=== PATIENT | female | born 1990 | race Asian ===

== ENCOUNTER 2018-08-16 21:49 | Emergency (ER) | payer SELFPAY ==
[~2018-08-16] VITALS: Ht 160 cm; Wt 55.3 kg
[2018-08-16] MEDS ORDERED: OMEPRAZOLE40 M1 ORAL (21:57)
[2018-08-16 22:30] VITALS: BP 122/76
[2018-08-16] MEDS ORDERED: Lidocaine 2% Visc 15ml soln PO ONE (22:30)
[2018-08-16] MEDS ORDERED: Mylanta II UD 30ml ORAL ONE (22:30)
[2018-08-16 23:07] LABS: HEMATOCRIT 41.8 % (37.0-47.0); HEMOGLOBIN 13.7 G/DL (12.0-16.0); MEAN CORPUSCULAR VOLUME 82 FL (80-99); PLATELET COUNT 374 K/UL (150-450); RED BLOOD COUNT 5.07 M/UL (4.20-5.40); RED CELL DISTRIBUTION WIDTH 13.2 % (11.6-14.8); WHITE BLOOD COUNT 6.2 K/UL (4.8-10.8)
[2018-08-16 23:15] LABS: ANION GAP 15 mmol/L (5-15); BLOOD UREA NITROGEN 7 mg/dL (7-18); CALCIUM 9.5 MG/DL (8.5-10.1); CARBON DIOXIDE 23 MMOL/L (21-32); CHLORIDE 101 MMOL/L (98-107); CREATININE 0.9 MG/DL (0.55-1.30); POTASSIUM 3.1 MMOL/L (3.5-5.1); SODIUM 139 MMOL/L (136-145)
[2018-08-16 23:17] LABS: ALANINE AMINOTRANSFERASE 8 U/L (12-78); ALBUMIN 4.4 G/DL (3.4-5.0); ALBUMIN/GLOBULIN RATIO 0.9 (1.0-2.7); ALKALINE PHOSPHATASE 75 U/L (46-116); ASPARTATE AMINO TRANSFERASE 18 U/L (15-37); BILIRUBIN,TOTAL 0.6 MG/DL (0.2-1.0)
--- NOTE | 2018-08-16 23:44 | Emergency Room Report ---
History of Present Illness General Chief Complaint: Abdominal Pain Present Illness HPI 28 AF c/o epigastric burning three days severe, similar to past episodes gastritis. Pt. has GERD and has been taking Omeprazole. In the past she has had US with no gallstones and also EGD with gastritis. No fever, no trauma, +nausea/ emesis. No past surgical history, no travel, no change in bowel. No etoh no nsaids. Allergies: Uncoded Allergies: CRUSTACIANS, SHELLFISH (Allergy, Unknown, 08/16/18) Patient History Last Menstrual Period: currently on Now: No Nursing Documentation-PMH Hx Gastrointestinal Problems: Yes - gastritis Review of Systems Constitutional: Reports: no symptoms Eye: Reports: no symptoms ENT: Reports: no symptoms Respiratory: Reports: no symptoms Cardiovascular: Reports: no symptoms Gastrointestinal: Reports: see HPI, abdominal pain, nausea, vomiting Genitourinary: Reports: no symptoms Musculoskeletal: Reports: no symptoms Skin: Reports: no symptoms Psychiatric: Reports: no symptoms Neurological: Reports: no symptoms Endocrine: Reports: no symptoms Hematologic/Lymphatic: Reports: no symptoms Allergic: Reports: no symptoms All Other Systems: negative except mentioned in HPI Physical Exam Vital Signs Date Time Temp Pulse Resp B/P (MAP) Pulse Ox O2 Delivery O2 Flow Rate FiO2 08/16/18 21:50 97.2 81 18 121/82 97 Room Air Sp02 EP Interpretation: reviewed, normal General Appearance: normal inspection, well appearing, no apparent distress, alert, GCS 15, non-toxic Head: normocephalic, atraumatic Eyes: bilateral eye normal inspection, bilateral eye PERRL, bilateral eye EOMI ENT: normal ENT inspection, hearing grossly normal, normal pharynx, no angioedema, normal voice, moist mucus membranes Neck: normal inspection, full range of motion, supple, no meningismus, no bony tend Respiratory: normal inspection, lungs clear, normal breath sounds, no rhonchi, no respiratory distress, no retraction, no accessory muscle use, no wheezing Cardiovascular #1: normal inspection, regular rate, rhythm, no edema Gastrointestinal: normal inspection, normal bowel sounds, soft, no mass, non- distended, other - +epigastric tenderness, negative Saldaña's Musculoskeletal: gait/station normal, normal range of motion Neurologic: normal inspection, alert, oriented x3, responsive, motor strength/ tone normal Psychiatric: normal inspection, judgement/insight normal, memory normal Suicide Risk Assessment: Suicidal Ideation: No Had intent to initiate attempt: No Pt's plan for suicide attempt: No Has means to complete attempt: No Skin: normal inspection, normal color, no rash, warm/dry Medical Decision Making Diagnostic Impression: Primary Impression: Gastritis Last Vital Signs Date Time Temp Pulse Resp B/P (MAP) Pulse Ox O2 Delivery O2 Flow Rate FiO2 08/16/18 22:30 97.2 61 18 122/76 97 Room Air Status: improved Disposition: HOME, SELF-CARE Condition: Stable Referrals: NOT CHOSEN IPA/,REFERRING (PCP) Patient Instructions: Gastritis, Adult Dino Roberson M.D. Aug 16, 2018 23:44
[2018-08-16] MEDS ORDERED: Morphine Sulfate 2mg/ml Inj IVP ONE (23:45)
[2018-08-17 00:18] LABS: APPEARANCE,URINE SLIGHTLY CLOUDY; BILIRUBIN, URINE NEGATIVE (NEGATIVE); COLOR,URINE PALE YELLOW; GLUCOSE, URINE (UA) NEGATIVE (NEGATIVE); KETONES,URINE 3+ (NEGATIVE); LEUKOCYTE ESTERASE ,URINE 2+ (NEGATIVE); NITRITE,URINE NEGATIVE (NEGATIVE); PH,URINE 6 (4.5-8.0); PROTEIN,URINE NEGATIVE (NEGATIVE); UROBILINOGEN,URINE NORMAL MG/DL (0.0-1.0)
[2018-08-17 00:20] VITALS: BP 117/73
[2018-08-17] MEDS ORDERED: ZOFRAN4 MG ORAL (01:00)
[2018-08-17 01:10] VITALS: BP 117/73
== END 2018-08-17 01:10 | disposition home or self-care (01) ==
LOC: EMR 22:23
DX: K29.70 Gastritis, unspecified, without bleeding (principal); K21.9 Gastro-esophageal reflux disease without esophagitis
CPT/HCPCS: 36415; 80053; 80307; 81001; 81025; 83690; 85007; 85025; 87086; 96361; 96374; 96375; 99284; J2270; J2405; S0028

== ENCOUNTER 2019-02-08 19:03 | Emergency (ER) | payer MEDICAID, OTHER ==
[~2019-02-08] VITALS: Ht 160 cm; Wt 54.4 kg
[~2019-02-08 19:03] MED LIST: OMEPRAZOLE40 M1 ORAL; ZOFRAN4 MG ORAL
[2019-02-08] MEDS ORDERED: ZANTAC150 MG ORAL (19:26)
--- NOTE | 2019-02-08 19:30 | NUR ---
ED Nurse Note: Patient walk in c/o upper left abdominal pain radiating to upper back for 2 days. Patient reports nausea. AO4. NAD. VSS
--- NOTE | 2019-02-08 19:35 | NUR ---
ED Nurse Note: IV ACCESS ESTABLISHED. BLOOD AND URINE COLLECTED; SENT DOWN TO LAB.
[2019-02-08 19:36] VITALS: BP 134/88
[2019-02-08 19:54] LABS: BASOPHILS % (AUTO) 1.6 % (0.0-2.0); HEMOGLOBIN 12.1 G/DL (12.0-16.0); LYMPHOCYTES % (AUTO) 44.5 % (20.0-45.0); MEAN CORPUSCULAR VOLUME 83 FL (80-99); MONOCYTES % (AUTO) 6.6 % (1.0-10.0); NEUTROPHILS % (AUTO) 45.3 % (45.0-75.0); PLATELET COUNT 247 K/UL (150-450); RED BLOOD COUNT 4.59 M/UL (4.20-5.40); RED CELL DISTRIBUTION WIDTH 13.3 % (11.6-14.8); WHITE BLOOD COUNT 4.6 K/UL (4.8-10.8)
[2019-02-08 20:03] LABS: ANION GAP 8 mmol/L (5-15); BLOOD UREA NITROGEN 8 mg/dL (7-18); CALCIUM 8.6 MG/DL (8.5-10.1); CARBON DIOXIDE 28 MMOL/L (21-32); CHLORIDE 104 MMOL/L (98-107); CREATININE 0.8 MG/DL (0.55-1.30); POTASSIUM 3.3 MMOL/L (3.5-5.1); SODIUM 139 MMOL/L (136-145)
[2019-02-08 20:07] LABS: ALANINE AMINOTRANSFERASE 9 U/L (12-78); ALBUMIN 3.9 G/DL (3.4-5.0); ALKALINE PHOSPHATASE 58 U/L (46-116); ASPARTATE AMINO TRANSFERASE 15 U/L (15-37); BILIRUBIN,TOTAL 0.6 MG/DL (0.2-1.0)
[2019-02-08 20:17] LABS: APPEARANCE,URINE CLEAR; BILIRUBIN, URINE NEGATIVE (NEGATIVE); COLOR,URINE PALE YELLOW; GLUCOSE, URINE (UA) NEGATIVE (NEGATIVE); KETONES,URINE NEGATIVE (NEGATIVE); LEUKOCYTE ESTERASE ,URINE 2+ (NEGATIVE); NITRITE,URINE NEGATIVE (NEGATIVE); PH,URINE 8 (4.5-8.0); PROTEIN,URINE NEGATIVE (NEGATIVE); UROBILINOGEN,URINE NORMAL MG/DL (0.0-1.0)
--- NOTE | 2019-02-08 20:23 | Emergency Room Report ---
History of Present Illness General Chief Complaint: Abdominal Pain Source: Patient Present Illness HPI 29-year-old female with history of gastritis currently under treatment of her PCP here complaining of worsening left upper quadrant pain that started 2 nights ago, 30 minutes after consumption of her meal. She reports the pain is now radiating to her left lower back and of her left shoulder. Minimal nausea acid reflux however has not vomited. Denies hemoptysis, blood in stool, diarrhea. Patient is waiting for pending abdominal ultrasound requested by primary care provider however has never been sent to gastroenterology. Chest pain, S OB, palpitation, urinary symptoms. P was 2 weeks ago and regular patient is not currently sexually active. Patient reports that she usually with spicy, acidic food and has not had anything greasy in the past few days. Alcohol consumption and drug use. Allergies: Uncoded Allergies: CRUSTACIANS, SHELLFISH (Allergy, Unknown, 08/16/18) Patient History Past Medical History: see triage record Past Surgical History: unable to obtain Pertinent Family History: none Last Menstrual Period: 01/25/2019 Now: No Immunizations: UTD Reviewed Nursing Documentation: PMH: Agreed; PSxH: Agreed Nursing Documentation-PMH Past Medical History: No History, Except For Hx Gastrointestinal Problems: Yes - gastritis Review of Systems All Other Systems: negative except mentioned in HPI Physical Exam Vital Signs Date Time Temp Pulse Resp B/P (MAP) Pulse Ox O2 Delivery O2 Flow Rate FiO2 02/08/19 19:20 98.4 73 16 134/88 97 Room Air Sp02 EP Interpretation: reviewed, normal General Appearance: normal inspection, well appearing, no apparent distress, alert, GCS 15 Head: normocephalic, atraumatic Eyes: bilateral eye normal inspection, bilateral eye PERRL ENT: normal ENT inspection, hearing grossly normal, normal pharynx, no angioedema Neck: normal inspection, full range of motion, supple Respiratory: normal inspection, chest non-tender, lungs clear, no rhonchi, no wheezing Cardiovascular #1: normal inspection, regular rate, rhythm, no edema, no gallop , no murmur, normal capillary refill Gastrointestinal: normal bowel sounds, non tender, no mass, no peritonitis, no bruit, non-distended, guarding - LUQ Rectal: deferred Genitourinary: no CVA tenderness Musculoskeletal: normal inspection, back normal Neurologic: normal inspection, alert, oriented x3 Psychiatric: normal inspection, judgement/insight normal Skin: normal inspection, normal color, no rash, warm/dry Lymphatic: normal inspection, no adenopathy Medical Decision Making PA Attestation All my diagnosis and treatment plans were reviewed ad discussed with my supervising physician Dr. Eubanks Diagnostic Impression: Primary Impression: Gastric ulcer Additional Impression: UTI (urinary tract infection) ER Course 29-year-old female with history of gastritis currently under treatment of her PCP here complaining of worsening left upper quadrant pain that started 2 nights ago, 30 minutes after consumption of her meal. She reports the pain is now radiating to her left lower back and of her left shoulder. Minimal nausea acid reflux however has not vomited. Denies hemoptysis, blood in stool, diarrhea. Patient is waiting for pending abdominal ultrasound requested by primary care provider however has never been sent to gastroenterology. Chest pain, S OB, palpitation, urinary symptoms. P was 2 weeks ago and regular patient is not currently sexually active. Patient reports that she usually with spicy, acidic food and has not had anything greasy in the past few days. Alcohol consumption and drug use. Ddx considered but are not limited to: gastric ulcer, gastritis, aortic dissection, UTI, pylonephritis, hypokalemia, peptic ulcer Vital signs: are WNL, pt. is afebrile H&PE are most consistent with: ORDERS: abdominal CT, abdominal pain set, EKG, 10mg potassium chloride PO , macrobid , omeprazole ED INTERVENTIONS: zofran and famitidine DISCHARGE: At this time pt. is stable for d/c to home. Will provide printed patient care instructions, and any necessary prescriptions. Care plan and follow up instructions have been discussed with the patient prior to discharge. potassium: 3.3, urine leuk: positive with WBC in UA EKG Diagnostic Results Rate: normal Rhythm: NSR ST Segments: no acute changes CT/MRI/US Diagnostic Results CT/MRI/US Diagnostic Results : Imaging Test Ordered: chest/abd CT no contrast Impression CT ABDOMEN & PELVIS Without Contrast: Only clinical information provided was "pain". Evaluation and significantly diminished by the absence of IV contrast enhancement. The unenhanced solid abdominal organs demonstrate no acute findings. Gallbladder and biliary tree are unremarkable. Lower GI tract demonstrates no obstruction, pneumatosis or focal wall thickening. The appendix is normal. Negative for pneumoperitoneum. Probable functional left ovarian cyst. Small amount of free fluid in the dependent pelvis likely physiologic or secondary to ovarian cyst rupture. Mittelschmerz is a consideration for patient's pain if it is lower abdominal/pelvic. CT CHEST Without Contrast: The only clinical history provided was "pain" Thoracic aorta is normal in caliber. Heart size is normal. Negative for parenchymal consolidation, pneumothorax or pleural fluid collections. No acute osseous findings. Last Vital Signs Date Time Temp Pulse Resp B/P (MAP) Pulse Ox O2 Delivery O2 Flow Rate FiO2 02/08/19 19:36 73 16 Room Air 02/08/19 19:36 98.4 134/88 97 Disposition: HOME, SELF-CARE Condition: Stable Patient Instructions: Gastritis, Adult, [id number], Urinary Tract Infection, [id number] Additional Instructions: Low with a primary care provider for referral to measurer for endoscopy and correct diagnosis of gastric ulcer avoid spicy, acidic and greasy food if bloody diarrhea or dark black stools or blood in vomit return to the emergency room immediately patient denies lower abdominal pain and no irregular vaginal bleeding reported. Follow-up with the primary care provider for referral to gastroenterology and possibly to veterinary manager if any irregular bleeding. Ezequiel Frost Feb 08, 2019 20:23
[2019-02-08] MEDS ORDERED: NITROFURANTOIN100 M2 ORAL (21:25)
[2019-02-08] MEDS ORDERED: OMEPRAZOLE20 M2 ORAL (21:25)
[2019-02-08] MEDS ORDERED: ZOFRAN4 M1 ORAL (21:28)
[2019-02-08 21:30] VITALS: BP 134/88
--- NOTE | 2019-02-08 21:30 | NUR ---
ER DISCHARGE NOTE: Patient is cleared to be discharged per ERMD, pt is aox4, on room air, with stable vital signs. accompanied by family member. pt was given dc and prescription instructions, pt was able to verbalize understanding, pt id band and iv site removed without complications. pt is able to ambulate with steady gait. pt took all belongings.
--- NOTE | 2019-02-09 10:47 | Diagnostic Imaging Report ---
CLINICAL INDICATION:Left upper abdominal pain radiating to upper back for 2 days, TECHNIQUE: No oral contrast, per emergency room physician request. No IV contrast utilized, per emergency room physician request. Spiral acquisitions obtained through the chest, abdomen, and pelvis. Multiplanar reconstructions were generated. Total dose length product 842.09 mGycm. CTDIvol(s) 13.12 mGy. Radiation dose was minimized using automated exposure control COMPARISON: none FINDINGS Chest: Lungs are clear. No infiltrates, effusions, or congestion. Occasional focal areas of pleural thickening are seen in the left lower lobe pleural surface. Heart size is normal. No pericardial effusion. No mediastinal or hilar mass or adenopathy. Included thyroid is unremarkable. No axillary or chest wall mass or adenopathy. The bones are unremarkable. Abdomen pelvis: Normal appendix. No evidence of diverticulosis or diverticulitis. No small bowel distention. No free or loculated intraperitoneal gas is evident. There is trace free fluid in the pelvic cul-de-sac The distal esophagus, stomach, duodenum are unremarkable. Lack of IV contrast limits assessment of the solid organs. The liver, gallbladder, bile ducts, pancreas, spleen, adrenals, kidneys are unremarkable. No pelvic mass or adenopathy. Uterus and ovaries are unremarkable. Bones are unremarkable. IMPRESSION: Essentially unremarkable exam. Trace free pelvic fluid, most likely physiologic This agrees with the preliminary interpretation provided overnight by [facility] teleradiology service. The CT scanner at [facility] is accredited by the [employer] and the scans are performed using protocols designed to limit radiation exposure to as low as reasonably achievable to attain images of sufficient resolution adequate for diagnostic evaluation.
== END 2019-02-08 21:30 | disposition home or self-care (01) ==
LOC: EMR 19:36
DX: K25.9 Gastric ulcer, unspecified as acute or chronic, without hemorrhage or perforation (principal); N39.0 Urinary tract infection, site not specified; Z91.013 Allergy to seafood; M54.5 Low back pain; M25.512 Pain in left shoulder; R11.0 Nausea
CPT/HCPCS: 36415; 71250; 74176; 80053; 81003; 81025; 83690; 85025; 93005; 96374; 96375; 99284; J2405; S0028

== ENCOUNTER 2019-05-28 10:42 | Emergency (ER) | payer OTHER ==
[~2019-05-28] VITALS: Ht 160 cm; Wt 56.2 kg
[~2019-05-28 10:42] MED LIST changes: +NITROFURANTOIN100 M2 ORAL; +OMEPRAZOLE20 M2 ORAL; +ZANTAC150 MG ORAL; +ZOFRAN4 M1 ORAL
--- NOTE | 2019-05-28 11:00 | NUR ---
ED Nurse Note: pt walked in to ER from home due to Lt upper abdomen pain 04/22 which started 2 days ago. pt aao x4 and ambulatory. skin clean and intact. calm and cooeprative. sister at bedside. pt is in gown. no acute distress noted at this moment. no vomiting but pt reported mild nausea.
[2019-05-28 11:08] VITALS: BP 117/56
--- NOTE | 2019-05-28 11:08 | Emergency Room Report ---
History of Present Illness General Chief Complaint: Abdominal Pain Source: Patient Present Illness HPI Disclaimer: Please note that this report is being documented using ePrepON technology. This can lead to erroneous entry secondary to incorrect interpretation by the dictating instrument. HPI: 29-year-old female with history of gastritis taking omeprazole presents for evaluation of abdominal pain. Symptoms present for approximately 2 days in the epigastrium. Notes a gnawing pain that began 2 days ago. Yesterday was getting a little bit better however late in the afternoon she began to feel extreme pain that was radiating up her back causing some difficulty breathing. Patient was scoped approximately 1 year ago but found no ulcers. She is currently being worked up by gastroenterology and plan for another EGD once she finished a course of omeprazole which she has been compliant with. Denies headaches, loss of consciousness but is lightheaded. She denies chest pain, palpitations. Notes mild shortness of breath due to pain. Denies diarrhea, melena, dysuria, hematuria, vaginal bleeding or vaginal discharge. LMP approximately 1 month ago. Denies drug or alcohol use. Denies fevers or chills. PMH: gastritis PSH: None Allergies: Fish Social Hx: Denies drug, alcohol or tobacco use Allergies: Uncoded Allergies: CRUSTACIANS, SHELLFISH (Allergy, Unknown, 08/16/18) Patient History Last Menstrual Period: 05/06/19 Now: No Nursing Documentation-PMH Past Medical History: No History, Except For Hx Gastrointestinal Problems: Yes - gastritis Review of Systems All Other Systems: negative except mentioned in HPI Physical Exam Vital Signs Date Time Temp Pulse Resp B/P (MAP) Pulse Ox O2 Delivery O2 Flow Rate FiO2 05/28/19 10:47 97.5 59 20 117/56 (76) 97 Room Air General: Awake and alert, no acute distress HEENT: NC/AT. EOMI. Neck: Supple, trachea midline Chest Wall: No tenderness, no deformity Cardiovascular: RRR. S1 and S2 normal. No murmur appreciated Resp: Normal work of breathing. No cough, wheezing or crackles appreciated Abdomen: Abdomen is soft, nondistended. Significant tenderness in the epigastrium, left upper quadrant. Minimal right upper quadrant tenderness. No Saldaña's. No rebound, no masses. Skin: Intact. No abrasions, laceration or rash over the exposed skin MSK: Normal tone and bulk. Moving all extremities. No obvious deformity. Neuro: Awake and alert. Mentating appropriately. Medical Decision Making ER Course 29-year-old female with a history of gastritis presents for evaluation of worsening abdominal pain over the past 2 days. Her vital signs are stable though the patient does appear uncomfortable. Differential includes but is not limited to gastritis, gastroenteritis, peptic ulcer disease, duodenal ulcer, abscess, pancreatitis, cholecystitis, perforation, UTI, , ectopic . We will start IV fluids, antiemetics, famotidine and send the patient for CT scan of the abdomen to rule out perforated ulcer or possible abscess. Laboratory Tests Test 05/28/19 11:05 White Blood Count 3.9 K/UL (4.8-10.8) L Red Blood Count 4.76 M/UL (4.20-5.40) Hemoglobin 12.5 G/DL (12.0-16.0) Hematocrit 40.3 % (37.0-47.0) Mean Corpuscular Volume 85 FL (80-99) Mean Corpuscular Hemoglobin 26.3 PG (27.0-31.0) L Mean Corpuscular Hemoglobin Concent 31.0 G/DL (32.0-36.0) L Red Cell Distribution Width 13.4 % (11.6-14.8) Platelet Count 325 K/UL (150-450) Mean Platelet Volume 4.7 FL (6.5-10.1) L Neutrophils (%) (Auto) 61.5 % (45.0-75.0) Lymphocytes (%) (Auto) 30.0 % (20.0-45.0) Monocytes (%) (Auto) 4.9 % (1.0-10.0) Eosinophils (%) (Auto) 1.7 % (0.0-3.0) Basophils (%) (Auto) 2.0 % (0.0-2.0) Urine Color Pale yellow Urine Appearance Slightly cloudy Urine pH 8 (4.5-8.0) Urine Specific [place] 1.015 (1.005-1.035) Urine Protein Negative (NEGATIVE) Urine Glucose (UA) Negative (NEGATIVE) Urine Ketones 2+ (NEGATIVE) H Urine Blood 3+ (NEGATIVE) H Urine Nitrite Negative (NEGATIVE) Urine Bilirubin Negative (NEGATIVE) Urine Urobilinogen Normal MG/DL (0.0-1.0) Urine Leukocyte Esterase 2+ (NEGATIVE) H Urine RBC 2-4 /HPF (0 - 2) H Urine WBC 2-4 /HPF (0 - 2) Urine Squamous Epithelial Cells Many /LPF (NONE/OCC) H Urine Bacteria Few /HPF (NONE) Urine HCG, Qualitative Negative (NEGATIVE) Sodium Level 141 MMOL/L (136-145) Potassium Level 3.7 MMOL/L (3.5-5.1) Chloride Level 107 MMOL/L (98-107) Carbon Dioxide Level 26 MMOL/L (21-32) Anion Gap 8 mmol/L (5-15) Blood Urea Nitrogen 9 mg/dL (7-18) Creatinine 0.8 MG/DL (0.55-1.30) Estimat Glomerular Filtration Rate > 60 mL/min (>60) Glucose Level 99 MG/DL (74-106) Calcium Level 8.6 MG/DL (8.5-10.1) Total Bilirubin 0.5 MG/DL (0.2-1.0) Aspartate Amino Transf (AST/SGOT) 15 U/L (15-37) Alanine Aminotransferase (ALT/SGPT) 6 U/L (12-78) L Alkaline Phosphatase 51 U/L (46-116) Total Protein 7.9 G/DL (6.4-8.2) Albumin 4.0 G/DL (3.4-5.0) Globulin 3.9 g/dL Albumin/Globulin Ratio 1.0 (1.0-2.7) Lipase 176 U/L (73-393) Reevaluation Time: 13:27 Last Vital Signs Date Time Temp Pulse Resp B/P (MAP) Pulse Ox O2 Delivery O2 Flow Rate FiO2 05/28/19 10:47 97.5 59 20 117/56 (76) 97 Room Air Status: improved Reevaluation Impression CT scan of the abdomen does not show any evidence of perforated ulcer, pink otitis, appendicitis or any other acute abnormality. There is a 14 mm low- attenuation right lobe liver lesion that will need follow-up as an outpatient. I discussed the findings as well as the focal fatty infiltration of the left hepatic lobe with the patient. She states that she is going to see her map mounter next week and bring this report which I printed for her. She can discuss further follow-up with ultrasound or other modalities as needed. She would like to return home now and states she is feeling much better. We will start the patient on famotidine daily and she will continue her omeprazole. She is treated with Protonix here in the emergency department. She can follow-up with her GI specialist and return to the emergency department any new or worsening symptoms. She understands and agrees with this treatment plan, the need for follow-up and reasons to return to the emergency department. Disposition: HOME, SELF-CARE Condition: Improved Scripts Famotidine (FAMOTIDINE) 20 Mg Tablet 20 MG ORAL TWICE A DAY for gerd, #60 TAB 0 Refills Prov: Luis Collado MD 05/28/19 Luis Collado MD May 28, 2019 11:08
[2019-05-28 11:26] LABS: EOSINOPHILS % (AUTO) 1.7 % (0.0-3.0); HEMATOCRIT 40.3 % (37.0-47.0); HEMOGLOBIN 12.5 G/DL (12.0-16.0); MEAN CORPUSCULAR VOLUME 85 FL (80-99); MONOCYTES % (AUTO) 4.9 % (1.0-10.0); NEUTROPHILS % (AUTO) 61.5 % (45.0-75.0); PLATELET COUNT 325 K/UL (150-450); RED BLOOD COUNT 4.76 M/UL (4.20-5.40); RED CELL DISTRIBUTION WIDTH 13.4 % (11.6-14.8); WHITE BLOOD COUNT 3.9 K/UL (4.8-10.8)
[2019-05-28 11:33] LABS: ANION GAP 8 mmol/L (5-15); BLOOD UREA NITROGEN 9 mg/dL (7-18); CALCIUM 8.6 MG/DL (8.5-10.1); CARBON DIOXIDE 26 MMOL/L (21-32); CHLORIDE 107 MMOL/L (98-107); CREATININE 0.8 MG/DL (0.55-1.30); POTASSIUM 3.7 MMOL/L (3.5-5.1); SODIUM 141 MMOL/L (136-145)
[2019-05-28 11:38] LABS: ALANINE AMINOTRANSFERASE 6 U/L (12-78); ALKALINE PHOSPHATASE 51 U/L (46-116); ASPARTATE AMINO TRANSFERASE 15 U/L (15-37); BILIRUBIN,TOTAL 0.5 MG/DL (0.2-1.0)
[2019-05-28 11:48] LABS: APPEARANCE,URINE SLIGHTLY CLOUDY; BILIRUBIN, URINE NEGATIVE (NEGATIVE); COLOR,URINE PALE YELLOW; GLUCOSE, URINE (UA) NEGATIVE (NEGATIVE); KETONES,URINE 2+ (NEGATIVE); LEUKOCYTE ESTERASE ,URINE 2+ (NEGATIVE); NITRITE,URINE NEGATIVE (NEGATIVE); PH,URINE 8 (4.5-8.0); PROTEIN,URINE NEGATIVE (NEGATIVE); UROBILINOGEN,URINE NORMAL MG/DL (0.0-1.0)
[2019-05-28] MEDS ORDERED: Isovue-300 100ml vial INJ PRN (12:30)
--- NOTE | 2019-05-28 12:42 | NUR ---
ED Nurse Note: pt ambulated to bathroom with steady gait.
[2019-05-28 13:08] VITALS: BP 126/78
--- NOTE | 2019-05-28 13:19 | NUR ---
ED Nurse Note: pt went down for CT in stable condition.
--- NOTE | 2019-05-28 13:40 | NUR ---
ED Nurse Note: pt came back from CT scan in stable condition.
--- NOTE | 2019-05-28 14:14 | Diagnostic Imaging Report ---
Clinical Indication: Abdominal pain Technique: No oral contrast utilized, per emergency room physician request IV administration nonionic contrast. Venous phase spiral acquisition obtained through the abdomen and pelvis. Multiplanar reconstructions were generated. Total dose length product 571.53 mGycm. CTDIvol(s) 11.86 mGy. Dose reduction achieved using automated exposure control Comparison: 02/08/2019 noncontrast study Findings: Lack of enteric contrast limits assessment of the GI tract. Normal appendix. No evidence of colonic diverticulosis or diverticulitis. Small amount of free fluid is seen within the pelvis. No small bowel distention. No free intraperitoneal gas demonstrated. The distal esophagus, stomach, duodenum are unremarkable. Within segment 5 of the liver, there is a subtle 14 mm low-attenuation lesion which is not visible on the prior noncontrast study. On the coronal images, there is suggestion of some border nodularity. There is some focal low attenuation likely representing focal fatty change in the usual location adjacent to the falciform ligament. There is a tiny subcentimeter low-attenuation lesion in segment 8 which is too small to characterize. The gallbladder, bile ducts, pancreas, spleen, adrenals, kidneys are all unremarkable. No retroperitoneal or mesenteric mass or adenopathy. No pelvic mass or adenopathy. Uterus and ovaries are unremarkable. The included lung bases are clear. The bones are unremarkable. Impression: Limited assessment of the GI tract, due to lack of enteric contrast administration No gross acute abnormality 14 mm low-attenuation right lobe liver lesion. Appearance nonspecific although some some border nodularity raises possibility that this is a hemangioma. Other differential considerations include adenoma, primary or secondary neoplasm, infectious/inflammatory lesion. Consider further with hemangioma protocol CT or MRI Focal fatty infiltration within the left hepatic lobe. Subcentimeter low-attenuation lesion within the right hepatic lobe, too small to characterize, does not need further follow-up Trace free pelvic fluid, presumably physiologic The CT scanner at [facility] is accredited by the [employer] and the scans are performed using protocols designed to limit radiation exposure to as low as reasonably achievable to attain images of sufficient resolution adequate for diagnostic evaluation.
--- NOTE | 2019-05-28 14:27 | NUR ---
ED Nurse Note: ERMD at bedside talking to pt regarding CT scan result.
[2019-05-28] MEDS ORDERED: FAMOTIDINE20 MG ORAL (14:36)
[2019-05-28 14:42] VITALS: BP 117/78
--- NOTE | 2019-05-28 14:42 | NUR ---
ER DISCHARGE NOTE: Patient is cleared to be discharged per ERMD, pt is aox4, accompanied by sister, on room air, with stable vital signs. pt was given dc and prescription instructions, pt was able to verbalize understanding, pt id band and iv site removed without complications. pt is able to ambulate with steady gait. pt took all belongings.
== END 2019-05-28 14:42 | disposition home or self-care (01) ==
LOC: EMR 11:17
DX: R10.9 Unspecified abdominal pain (principal); Z91.013 Allergy to seafood; K76.9 Liver disease, unspecified
CPT/HCPCS: 36415; 74177; 80053; 81003; 81025; 83690; 85025; 96374; 96375; 99284; J2405; Q9967; S0028

== ENCOUNTER 2019-06-08 11:14 | Emergency (ER) | payer OTHER ==
[~2019-06-08] VITALS: Ht 160 cm; Wt 55.3 kg
[~2019-06-08 11:14] MED LIST changes: +FAMOTIDINE20 MG ORAL
[2019-06-08 11:45] VITALS: BP 122/85
--- NOTE | 2019-06-08 11:45 | NUR ---
ED Nurse Note: Patient walked into ER c/o abdominal pakin N/D. AAO x4, VSS at this time, skin is dry warm to touch.
--- NOTE | 2019-06-08 11:50 | NUR ---
ED Nurse Note: bloodand urine were collected, sent down
[2019-06-08] MEDS ORDERED: Lidocaine 2% Visc 15ml soln ORAL ONE (12:00)
[2019-06-08] MEDS ORDERED: Mylanta II UD 30ml ORAL ONE (12:00)
[2019-06-08] MEDS ORDERED: Dicyclomine HCl 10mg/5ml oral soln ORAL ONE (12:00)
[2019-06-08 12:34] LABS: APPEARANCE,URINE CLEAR; BASOPHILS % (AUTO) 1.6 % (0.0-2.0); BILIRUBIN, URINE NEGATIVE (NEGATIVE); COLOR,URINE PALE YELLOW; EOSINOPHILS % (AUTO) 3.2 % (0.0-3.0); GLUCOSE, URINE (UA) NEGATIVE (NEGATIVE); HEMATOCRIT 42.5 % (37.0-47.0); KETONES,URINE NEGATIVE (NEGATIVE); LEUKOCYTE ESTERASE ,URINE 1+ (NEGATIVE); LYMPHOCYTES % (AUTO) 35.1 % (20.0-45.0); MEAN CORPUSCULAR VOLUME 85 FL (80-99); MONOCYTES % (AUTO) 4.6 % (1.0-10.0); NEUTROPHILS % (AUTO) 55.5 % (45.0-75.0); NITRITE,URINE NEGATIVE (NEGATIVE); PH,URINE 7 (4.5-8.0); PLATELET COUNT 298 K/UL (150-450); PROTEIN,URINE NEGATIVE (NEGATIVE); RED CELL DISTRIBUTION WIDTH 13.6 % (11.6-14.8); UROBILINOGEN,URINE NORMAL MG/DL (0.0-1.0); WHITE BLOOD COUNT 5.6 K/UL (4.8-10.8)
[2019-06-08 12:47] LABS: ANION GAP 9 mmol/L (5-15); BLOOD UREA NITROGEN 6 mg/dL (7-18); CALCIUM 9.4 MG/DL (8.5-10.1); CARBON DIOXIDE 28 MMOL/L (21-32); CHLORIDE 105 MMOL/L (98-107); CREATININE 0.9 MG/DL (0.55-1.30); POTASSIUM 4.3 MMOL/L (3.5-5.1); SODIUM 142 MMOL/L (136-145)
[2019-06-08 12:51] LABS: ALANINE AMINOTRANSFERASE 8 U/L (12-78); ALBUMIN 4.2 G/DL (3.4-5.0); ALKALINE PHOSPHATASE 62 U/L (46-116); ASPARTATE AMINO TRANSFERASE 15 U/L (15-37); BILIRUBIN,TOTAL 0.5 MG/DL (0.2-1.0)
[2019-06-08] MEDS ORDERED: ONDANSETRON ODT4 MG BC (13:37)
[2019-06-08] MEDS ORDERED: DICYCLOMINE HCL10 MG ORAL (13:37)
[2019-06-08 13:42] VITALS: BP 122/85
--- NOTE | 2019-06-08 13:43 | NUR ---
ER DISCHARGE NOTE: Patient is cleared to be discharged per ERMD, pt is aox4, on room air, with stable vital signs. pt was given dc and prescription instructions, pt was able to verbalize understanding, pt id band and iv site removed without complications. pt is able to ambulate with steady gait. pt took all belongings.
--- NOTE | 2019-06-10 15:25 | Emergency Room Report ---
History of Present Illness General Chief Complaint: Abdominal Pain Source: Patient Present Illness HPI 29-year-old female presents ED for evaluation. Patient complaining of abdominal pain with diarrhea for the last few days. Pain is cramping, 5 out of 10, nonradiating. Patient was concerned because she had some blood in her stool today. Denies any fevers or chills. Denies recent travel or recent antibiotic use. No other aggravating relieving factors. Denies any other associated symptoms Allergies: Uncoded Allergies: CRUSTACIANS, SHELLFISH (Allergy, Unknown, 08/16/18) Patient History Past Medical History: GERD Past Surgical History: none Pertinent Family History: none Social History: Denies: smoking, alcohol use, drug use Last Menstrual Period: MAY, 2019 Now: No Immunizations: UTD Reviewed Nursing Documentation: PMH: Agreed; PSxH: Agreed Nursing Documentation-PMH Past Medical History: No History, Except For Hx Gastrointestinal Problems: Yes - gastritis Review of Systems All Other Systems: negative except mentioned in HPI Physical Exam Vital Signs Date Time Temp Pulse Resp B/P (MAP) Pulse Ox O2 Delivery O2 Flow Rate FiO2 06/08/19 11:30 98.4 66 18 122/85 (97) 97 06/08/19 11:45 Room Air Sp02 EP Interpretation: reviewed, normal General Appearance: no apparent distress, alert, GCS 15, non-toxic Head: normocephalic, atraumatic Eyes: bilateral eye normal inspection, bilateral eye PERRL ENT: hearing grossly normal, normal pharynx, no angioedema, normal voice Neck: full range of motion, supple/symm/no masses Respiratory: chest non-tender, lungs clear, normal breath sounds, speaking full sentences Cardiovascular #1: regular rate, rhythm, no edema Cardiovascular #2: 2+ carotid (R), 2+ carotid (L), 2+ radial (R), 2+ radial (L) , 2+ dorsalis pedis (R), 2+ dorsalis pedis (L) Gastrointestinal: normal bowel sounds, non tender, soft, non-distended, no guarding, no rebound Rectal: deferred Genitourinary: normal inspection, no CVA tenderness Musculoskeletal: back normal, gait/station normal, normal range of motion, non- tender Neurologic: alert, oriented x3, responsive, motor strength/tone normal, sensory intact, speech normal Psychiatric: judgement/insight normal, memory normal, mood/affect normal, no suicidal/homicidal ideation Reflexes: 3+ bicep (R), 3+ bicep (L), 3+ tricep (R), 3+ tricep (L), 3+ knee (R) , 3+ knee (L) Lymphatic: no adenopathy Medical Decision Making Diagnostic Impression: Primary Impression: Gastroenteritis ER Course Hospital Course 29 yo F presents to ED c/o abd pain with diarrhea differential diagnosis: gastritis, SBO, cholecystits, gastroenteritis Clinical course Patient placed on stretcher. On home maker. After initial history and physical I ordered labs, IV fluids, zofran, pepcid, and GI cocktail. Labs - no leukocytosis, electrolytes ok , LFTs normal, UA unremarkable discussed findings with patient. Seen here on 05/28 for gastritis symptoms. Had labs and CT done which were unremarkable. I see no reason to repeat imaging at this time. Safe for discharge for close outpatient follow-up. States she has a PMD I feel this is a highly complex case requiring extensive working including EKG/ Rhythm strip, Xray/CT/US, Blood/urine lab work, repeat exams while in ED, and administration of strong opiates/narcotics for pain control, admission to hospital or close patient follow up. Diagnosis - gastroenteritis Stable and discharged to home with prescriptions for bentyl, zofran. Followup with PMD. Return to ED if symptoms recur or worsen Labs Test 06/08/19 12:05 White Blood Count 5.6 K/UL (4.8-10.8) Red Blood Count 5.00 M/UL (4.20-5.40) Hemoglobin 13.0 G/DL (12.0-16.0) Hematocrit 42.5 % (37.0-47.0) Mean Corpuscular Volume 85 FL (80-99) Mean Corpuscular Hemoglobin 26.0 PG (27.0-31.0) Mean Corpuscular Hemoglobin Concent 30.5 G/DL (32.0-36.0) Red Cell Distribution Width 13.6 % (11.6-14.8) Platelet Count 298 K/UL (150-450) Mean Platelet Volume 5.2 FL (6.5-10.1) Neutrophils (%) (Auto) 55.5 % (45.0-75.0) Lymphocytes (%) (Auto) 35.1 % (20.0-45.0) Monocytes (%) (Auto) 4.6 % (1.0-10.0) Eosinophils (%) (Auto) 3.2 % (0.0-3.0) Basophils (%) (Auto) 1.6 % (0.0-2.0) Urine Color Pale yellow Urine Appearance Clear Urine pH 7 (4.5-8.0) Urine Specific [place] 1.000 (1.005-1.035) Urine Protein Negative (NEGATIVE) Urine Glucose (UA) Negative (NEGATIVE) Urine Ketones Negative (NEGATIVE) Urine Blood 3+ (NEGATIVE) Urine Nitrite Negative (NEGATIVE) Urine Bilirubin Negative (NEGATIVE) Urine Urobilinogen Normal MG/DL (0.0-1.0) Urine Leukocyte Esterase 1+ (NEGATIVE) Urine RBC 2-4 /HPF (0 - 2) Urine WBC 0-2 /HPF (0 - 2) Urine Squamous Epithelial Cells Few /LPF (NONE/OCC) Urine Bacteria Few /HPF (NONE) Urine HCG, Qualitative Negative (NEGATIVE) Sodium Level 142 MMOL/L (136-145) Potassium Level 4.3 MMOL/L (3.5-5.1) Chloride Level 105 MMOL/L (98-107) Carbon Dioxide Level 28 MMOL/L (21-32) Anion Gap 9 mmol/L (5-15) Blood Urea Nitrogen 6 mg/dL (7-18) Creatinine 0.9 MG/DL (0.55-1.30) Estimat Glomerular Filtration Rate > 60 mL/min (>60) Glucose Level 95 MG/DL (74-106) Calcium Level 9.4 MG/DL (8.5-10.1) Total Bilirubin 0.5 MG/DL (0.2-1.0) Aspartate Amino Transf (AST/SGOT) 15 U/L (15-37) Alanine Aminotransferase (ALT/SGPT) 8 U/L (12-78) Alkaline Phosphatase 62 U/L (46-116) Total Protein 8.2 G/DL (6.4-8.2) Albumin 4.2 G/DL (3.4-5.0) Globulin 4.0 g/dL Albumin/Globulin Ratio 1.0 (1.0-2.7) Lipase 186 U/L (73-393) Last Vital Signs Date Time Temp Pulse Resp B/P (MAP) Pulse Ox O2 Delivery O2 Flow Rate FiO2 06/08/19 13:42 98.4 18 122/85 97 Room Air 06/08/19 11:45 66 Status: improved Disposition: HOME, SELF-CARE Condition: Stable Scripts Ondansetron Odt* (ZOFRAN ODT*) 4 Mg Tab.rapdis 4 MG BC EVERY 6 HOURS PRN for Nausea & Vomiting, #20 TAB 0 Refills Prov: Terrence Langley MD 06/08/19 Dicyclomine Hcl* (DICYCLOMINE HCL*) 10 Mg Capsule 10 MG ORAL QID, #20 CAP Prov: Terrence Langley MD 06/08/19 Patient Instructions: Viral Gastroenteritis, Adult, [id number] Terrence Langley MD Jun 10, 2019 15:25
== END 2019-06-08 13:50 | disposition home or self-care (01) ==
LOC: EMR 12:11
DX: K52.9 Noninfective gastroenteritis and colitis, unspecified (principal); Z91.013 Allergy to seafood; K21.9 Gastro-esophageal reflux disease without esophagitis
CPT/HCPCS: 36415; 80053; 81003; 81025; 83690; 85025; 96361; 96374; 96375; 99284; J2405; S0028

== ENCOUNTER 2020-05-19 16:35 | Emergency (ER) | payer OTHER ==
[~2020-05-19] VITALS: Ht 160 cm; Wt 54.4 kg
[~2020-05-19 16:35] MED LIST changes: +DICYCLOMINE HCL10 MG ORAL; +ONDANSETRON ODT4 MG BC
[2020-05-19] MEDS ORDERED: Ketorolac 30mg Inj IV ONE (17:00)
--- NOTE | 2020-05-19 17:20 | NUR ---
ED Nurse Note:pt. came with c/o abdominal pain nausea vomiting, VSS
--- NOTE | 2020-05-19 17:24 | NUR ---
ED Nurse Note:blood and urine sent to labs, pt. received IV fluids and meds
[2020-05-19 17:53] VITALS: BP 122/83
--- NOTE | 2020-05-19 17:54 | Emergency Room Report ---
History of Present Illness General Chief Complaint: Abdominal Pain Source: Patient Present Illness HPI 30-year-old female with history of gastritis here complaining of 2 days of pain radiating to mid back and few bouts of nonbloody emesis. Denies any diarrhea, complains of minimal constipation. Denies any blood in stool. Complains of acid reflux and reports her pain is worse when laying down on back. Denies any chest pain shortness of breath. Denies any loss of taste and smell, sore throat , cough or congestion. Denies any urinary frequency and urgency. Denies . Has not taken medication for symptom relief. Denies tobacco smoke, denies all other drug use and alcohol intake. Reports that last year she got tested negative for H. pylori however patient has been feeling really bloated and feels uncomfortable with a lot of pressure in the abdomen. Denies any abdominal surgeries. Allergies: Uncoded Allergies: CRUSTACIANS, SHELLFISH (Allergy, Unknown, 08/16/18) COVID-19 Screening Contact w/high risk pt: No Experienced COVID-19 symptoms?: No COVID-19 Testing performed REAL ESTATE INVESTMENT ANALYST: No Patient History Past Medical History: see triage record Past Surgical History: none Pertinent Family History: none Last Menstrual Period: 05/17/2020 Now: No Immunizations: UTD Reviewed Nursing Documentation: PMH: Agreed; PSxH: Agreed Nursing Documentation-PM Past Medical History: No Stated History Hx Gastrointestinal Problems: Yes - gastritis Review of Systems All Other Systems: negative except mentioned in HPI Physical Exam Vital Signs Date Time Temp Pulse Resp B/P (MAP) Pulse Ox O2 Delivery O2 Flow Rate FiO2 05/19/20 16:51 97.2 77 17 122/83 (96) 98 Room Air Sp02 EP Interpretation: reviewed, normal General Appearance: no apparent distress, alert, GCS 15, non-toxic Head: normocephalic, atraumatic Eyes: bilateral eye normal inspection, bilateral eye PERRL ENT: hearing grossly normal, normal pharynx, no angioedema, normal voice Neck: full range of motion, supple/symm/no masses Respiratory: chest non-tender, lungs clear, normal breath sounds, no rhonchi, speaking full sentences Cardiovascular #1: regular rate, rhythm, no edema, no murmur Gastrointestinal: normal bowel sounds, non tender, soft, no mass, no organomegaly, no peritonitis, no bruit, non-distended, no guarding, no hernia, no pulsatile mass, no rebound Rectal: deferred Genitourinary: no CVA tenderness Musculoskeletal: back normal Neurologic: alert, motor strength/tone normal, oriented x3, sensory intact, responsive, speech normal Psychiatric: judgement/insight normal, memory normal, mood/affect normal, no suicidal/homicidal ideation Skin: no rash Lymphatic: no adenopathy Medical Decision Making PA Attestation All diagnoses and treatment plans were reviewed and discussed with my supervising physician Dr. Simon Diagnostic Impression: Primary Impression: UTI (urinary tract infection) Additional Impression: Abdominal pain ER Course 30-year-old female with history of gastritis here complaining of 2 days of pain radiating to mid back and few bouts of nonbloody emesis. Denies any diarrhea, complains of minimal constipation. Denies any blood in stool. Complains of acid reflux and reports her pain is worse when laying down on back. Denies any chest pain shortness of breath. Denies any loss of taste and smell, sore throat , cough or congestion. Denies any urinary frequency and urgency. Denies . Has not taken medication for symptom relief. Denies tobacco smoke, denies all other drug use and alcohol intake. Reports that last year she got tested negative for H. pylori however patient has been feeling really bloated and feels uncomfortable with a lot of pressure in the abdomen. Denies any abdominal surgeries. Ddx considered but are not limited to: appendicitis, cholecystis, gastritis, gastroenteritis, UTI, pyelonephritis, SBO, diverticulitis, influenza with GI manifestation, pancreatitis Vital signs: are WNL, pt. is afebrile H&PE are most consistent with: UTI, abdominal pain ORDERS: Urine drug screen, urine test, CBC, CMP, lipase, omeprazole, Zofran, Tylenol, Macrobid, CT abdomen pelvis with contrast ED INTERVENTIONS: NS bolus, Pepcid, Zofran, Toradol DISCHARGE: At this time pt. is stable for d/c to home. Will provide printed patient care instructions, and any necessary prescriptions. Care plan and follow up instructions have been discussed with the patient prior to discharge. Patient take medication as directed, follow primary care provider, worsening symptoms return to the emergency room also with worsening acidic food, H. pylori testing may be needed, at this time no imaging is needed patient is nontender to palpation abdomen. However if worsening symptom return to the emergency room. Referral to senior data integration developer may be needed upon request of primary care doctor CT/MRI/US Diagnostic Results CT/MRI/US Diagnostic Results : Imaging Test Ordered: CT abdomen pelvis with contrast Impression COMPARISON: CT chest abdomen pelvis 02/08/2019 FINDINGS: Lung bases: Unremarkable. ABDOMEN: Liver: Incompletely characterized low-attenuation lesion within hepatic segment 6 measuring 1.5 cm (image 4-28). This is not consistent with a simple cyst. Statistically favored to be benign given the patient's age. Focal hepatic steatosis along the falciform ligament. Gallbladder and bile ducts: Unremarkable. Pancreas: Unremarkable. Spleen: Unremarkable. Adrenals: Unremarkable. Kidneys and ureters: Unremarkable. No obstructing stones. No hydronephrosis. Stomach and bowel: Unremarkable. PELVIS: Appendix: Normal appendix. Bladder: Unremarkable. Reproductive: Unremarkable as visualized. ABDOMEN and PELVIS: Intraperitoneal space: Trace physiologic free fluid within the pelvis. No free air. Bones/joints: No acute fracture. Soft tissues: Unremarkable. Vasculature: Unremarkable. Lymph nodes: Unremarkable. IMPRESSION: 1. No acute abnormality. 2. Incompletely characterized low-attenuation lesion within hepatic segment 6 measuring 1.5 cm (image 4-28). Consider follow-up CT or MRI in 6 months. 3. Trace physiologic free fluid within the pelvis. Last Vital Signs Date Time Temp Pulse Resp B/P (MAP) Pulse Ox O2 Delivery O2 Flow Rate FiO2 05/19/20 16:51 97.2 77 17 122/83 (96) 98 Room Air Disposition: HOME, SELF-CARE Condition: Stable Scripts Acetaminophen* (TYLENOL EXTRA STRENGTH*) 500 Mg Tablet 500 MG ORAL Q8H PRN for Prn Headache/Temp > 101, #30 TAB 0 Refills Prov: Ezequiel Frost 05/19/20 Nitrofurantoin Monohyd/M-Cryst* (MACROBID 100 MG*) 100 Mg Capsule 100 MG ORAL EVERY 12 HOURS for 7 Days, #14 CAP Prov: Ezequiel Frost 05/19/20 Ondansetron (Zofran) 4 Mg Tablet 4 MG ORAL Q6H PRN for Nausea & Vomiting, #14 TAB Prov: Ezequiel Frost 05/19/20 Omeprazole (OMEPRAZOLE) 20 Mg Tablet. 20 MG ORAL DAILY, #30 TAB Prov: Ezequiel Frost 05/19/20 Patient Instructions: Abdominal Pain, Adult, Urinary Tract Infection, Easy-to- Read Additional Instructions: Patient take medication as directed, follow primary care provider, worsening symptoms return to the emergency room also with worsening acidic food, H. pylori testing may be needed, at this time no imaging is needed patient is nontender to palpation abdomen. However if worsening symptom return to the emergency room. Referral to senior data integration developer may be needed upon request of primary care doctor Ezequiel Frost May 19, 2020 17:54
[2020-05-19 18:34] LABS: BASOPHILS % (AUTO) 1.8 % (0.0-2.0); EOSINOPHILS % (AUTO) 1.2 % (0.0-3.0); HEMATOCRIT 39.8 % (37.0-47.0); HEMOGLOBIN 12.4 G/DL (12.0-16.0); LYMPHOCYTES % (AUTO) 29.2 % (20.0-45.0); MEAN CORPUSCULAR VOLUME 80 FL (80-99); MONOCYTES % (AUTO) 4.9 % (1.0-10.0); NEUTROPHILS % (AUTO) 62.9 % (45.0-75.0); PLATELET COUNT 298 K/UL (150-450); RED CELL DISTRIBUTION WIDTH 15.9 % (11.6-14.8); WHITE BLOOD COUNT 6.5 K/UL (4.8-10.8)
[2020-05-19 18:40] LABS: APPEARANCE,URINE CLOUDY; BILIRUBIN, URINE NEGATIVE (NEGATIVE); GLUCOSE, URINE (UA) NEGATIVE (NEGATIVE); KETONES,URINE 3+ (NEGATIVE); LEUKOCYTE ESTERASE ,URINE 2+ (NEGATIVE); NITRITE,URINE NEGATIVE (NEGATIVE); PH,URINE 5 (4.5-8.0); PROTEIN,URINE 1+ (NEGATIVE); UROBILINOGEN,URINE NORMAL MG/DL (0.0-1.0)
[2020-05-19 18:42] LABS: COLOR,URINE YELLOW
[2020-05-19 18:52] LABS: ANION GAP 14 mmol/L (5-15); BLOOD UREA NITROGEN 8 mg/dL (7-18); CALCIUM 8.8 MG/DL (8.5-10.1); CARBON DIOXIDE 22 MMOL/L (21-32); CHLORIDE 104 MMOL/L (98-107); CREATININE 0.8 MG/DL (0.55-1.30); POTASSIUM 4.9 MMOL/L (3.5-5.1); SODIUM 140 MMOL/L (136-145)
[2020-05-19 18:57] LABS: ALANINE AMINOTRANSFERASE 11 U/L (12-78); ALBUMIN 4.3 G/DL (3.4-5.0); ALKALINE PHOSPHATASE 61 U/L (46-116); ASPARTATE AMINO TRANSFERASE 35 U/L (15-37); BILIRUBIN,TOTAL 0.5 MG/DL (0.2-1.0)
[2020-05-19] MEDS ORDERED: TYLENOL EXTRA500 MG ORAL (19:16)
[2020-05-19] MEDS ORDERED: NITROFURANTOIN100 M2 ORAL (19:16)
[2020-05-19] MEDS ORDERED: ZOFRAN4 M1 ORAL (19:16)
[2020-05-19] MEDS ORDERED: OMEPRAZOLE20 M3 ORAL (19:16)
[2020-05-19] MEDS ORDERED: Omnipaque-300 100ml vial INJ PRN (19:30)
--- NOTE | 2020-05-19 19:55 | NUR ---
ED Nurse Note: pt to CT
--- NOTE | 2020-05-19 20:09 | NUR ---
ED Nurse Note: Pt back from CT
[2020-05-19 20:35] VITALS: BP 128/80
--- NOTE | 2020-05-19 20:35 | NUR ---
ER DISCHARGE NOTE: Patient is cleared to be discharged per ERMD, pt is aox4, on room air, with stable vital signs. pt was given dc and prescription instructions, pt was able to verbalize understanding, pt id band removed. pt is able to ambulate with steady gait with walker/cane, leaving in [place] vehicle with daughter. pt took all belongings. Addendum: 05/19/20 at 2043 by KDEARING no walker or cane, pt ambulated with steady gait
--- NOTE | 2020-05-19 20:37 | Diagnostic Imaging Report ---
EXAM: CT Abdomen and Pelvis With Intravenous Contrast CLINICAL HISTORY: PAIN TECHNIQUE: Axial computed tomography images of the abdomen and pelvis with intravenous contrast. CTDI is 3.9 mGy and DLP is 192 mGy-cm. One or more of the following dose reduction techniques were used: automated exposure control, adjustment of the mA and/or kV according to patient size, use of iterative reconstruction technique. COMPARISON: CT chest abdomen pelvis 02/08/2019 FINDINGS: Lung bases: Unremarkable. ABDOMEN: Liver: Incompletely characterized low-attenuation lesion within hepatic segment 6 measuring 1.5 cm (image 4-28). This is not consistent with a simple cyst. Statistically favored to be benign given the patient's age. Focal hepatic steatosis along the falciform ligament. Gallbladder and bile ducts: Unremarkable. Pancreas: Unremarkable. Spleen: Unremarkable. Adrenals: Unremarkable. Kidneys and ureters: Unremarkable. No obstructing stones. No hydronephrosis. Stomach and bowel: Unremarkable. PELVIS: Appendix: Normal appendix. Bladder: Unremarkable. Reproductive: Unremarkable as visualized. ABDOMEN and PELVIS: Intraperitoneal space: Trace physiologic free fluid within the pelvis. No free air. Bones/joints: No acute fracture. Soft tissues: Unremarkable. Vasculature: Unremarkable. Lymph nodes: Unremarkable. IMPRESSION: 1. No acute abnormality. 2. Incompletely characterized low-attenuation lesion within hepatic segment 6 measuring 1.5 cm (image 4-28). Consider follow-up CT or MRI in 6 months. 3. Trace physiologic free fluid within the pelvis.
== END 2020-05-19 20:35 | disposition home or self-care (01) ==
LOC: EMR 17:05
DX: N39.0 Urinary tract infection, site not specified (principal); R10.9 Unspecified abdominal pain; Z91.013 Allergy to seafood
CPT/HCPCS: 36415; 74177; 80053; 80307; 81003; 81025; 83690; 84484; 85025; 87086; 96361; 96374; 96375; J1885; J2405; J7030; Q9967; S0028; Z7502; 99284